=== PATIENT | male | born 1990 | race Caucasian/White ===

== ENCOUNTER 2018-03-24 13:17 | Emergency (ER) | payer OTHER, SELFPAY ==
[2018-03-24] MEDS ORDERED: traMADol HCl 50 MG TAB ONE (13:42)
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
== END 2018-03-24 14:37 | disposition home or self-care (01) ==
LOC: MADERS 13:17
DX: S01.111A Laceration without foreign body of right eyelid and periocular area, initial encounter (principal); S05.11XA Contusion of eyeball and orbital tissues, right eye, initial encounter; S00.83XA Contusion of other part of head, initial encounter; F41.9 Anxiety disorder, unspecified; F43.10 Post-traumatic stress disorder, unspecified; F32.9 Major depressive disorder, single episode, unspecified; F17.210 Nicotine dependence, cigarettes, uncomplicated; Y04.0XXA Assault by unarmed brawl or fight, initial encounter
CPT/HCPCS: 70486

== ENCOUNTER 2022-08-24 15:34 | Emergency (ER) | payer SELFPAY ==
[~2022-08-24 15:34] MED LIST: Sodium Chloride 0.9% 100 ML BAG ONE
[2022-08-24 16:41] LABS: Bilirubin Negative (Negative); Blood, Urine Moderate (Negative); Clarity Clear (Clear); Glucose, Urine (Dipstick) Negative (Negative); Ketone, Urine Negative (Negative); Leukocyte Small (Negative); Nitrite Negative (Negative); Protein, Urine (Dipstick) Negative (Neg-Trace); Urobilinogen 0.2 mg/dL (Less than 2)
[2022-08-24 16:42] LABS: ALT (SGPT) 10 U/L (8-55); AST (SGOT) 13 U/L (5-34); Albumin 4.4 g/dL (3.5-5.0); Alkaline Phosphatase 88 U/L (40-110); Anion Gap 13 mmol/L (10-20); BUN (Urea Nitrogen) 13 mg/dL (8.9-20.6); Bilirubin, Total 0.2 mg/dL (0.2-1.2); Calc. Creatinine Clearance 0 mL/min (70-130); Calcium 9.6 mg/dL (7.8-10.44); Carbon Dioxide 26 mmol/L (22-29); Chloride 102 mmol/L (98-107); Estimated GFR 101; Globulin 3.3 g/dL (2.4-3.5); Glucose 100 mg/dL (70-105); Magnesium 1.7 mg/dL (1.6-2.6); Potassium 3.9 mmol/L (3.5-5.1); Protein, Total 7.7 g/dL (6.0-8.3); Sodium 137 mmol/L (136-145)
[2022-08-24 16:43] LABS: Hemoglobin 14.9 g/dL (14.0-18.0); Mean Corpuscular HGB CONC 33.4 g/dL (32.0-36.0); Mean Corpuscular Hemoglobin 28.8 pg (27.0-31.0); Mean Corpuscular Volume 86.3 fl (78.0-98.0); Mean Platelet Volume 9.9 fL (7.4-10.4); Platelet Count 320 10x3/uL (130-400); RBC Distribution Width 11.9 % (11.5-14.5); Red Blood Cell (RBC) Count 5.16 mill/uL (4.70-6.10)
[2022-08-24 16:56] LABS: Eosinophils 1 % (0-10); Lymphocytes 11 % (21-51); MDiff Complete? YES; Manual Diff?? YES; Monocytes 3 % (0-10); Neutrophil 79 % (42-75); Reactive Lymphocytes 6 % (0-10)
[2022-08-24 16:57] LABS: Platelet Adequacy Comment Appears Adequate
[2022-08-24 17:04] LABS: Bacteria/HPF Rare-Few HPF (None Seen); CAUTI Indications for Culture Dysuria,urgency,freq; Squamous Epithelial 0-3 HPF (0-3); Urine Culture Reflex Yes Yes
[2022-08-24] MEDS ORDERED: Ketorolac Tromethamine 30 MG/ML VIAL ONE (17:07)
[2022-08-24] MEDS ORDERED: Sodium Chloride 0.9% 1,000 ML ONE (17:07)
[2022-08-24] MEDS ORDERED: cefTRIAXone (ROCEPHIN) 2 GM VIAL ONE (17:08)
== END 2022-08-24 18:50 | disposition short-term general hospital (02) ==
LOC: MADERS 15:34
DX: N10 Acute pyelonephritis (principal); F17.210 Nicotine dependence, cigarettes, uncomplicated
CPT/HCPCS: 36415; 80053; 81001; 83605; 83735; 85025; 87086; 96361; 96374; 96375; J0696; J1885; J3490; J7050

== ENCOUNTER 2023-01-05 22:29 | Emergency (ER) | payer SELFPAY ==
[2023-01-05] MEDS ORDERED: Oxymetazoline HCl 0.05% (30 ML BOT) ONE (22:55)
[2023-01-05] MEDS ORDERED: Tranexamic Acid 1,000 MG/10 ML VIAL ONE (23:15)
== END 2023-01-06 00:33 | disposition home or self-care (01) ==
LOC: MADERS 22:29
DX: R04.0 Epistaxis (principal); I10 Essential (primary) hypertension; F17.210 Nicotine dependence, cigarettes, uncomplicated
CPT/HCPCS: 30903